=== PATIENT | female | born 1930 | race Caucasian/White ===

== ENCOUNTER 2017-06-06 06:20 | Emergency (ER) | payer OTHER ==
--- NOTE | 2017-06-06 06:41 | EDPHY ---
H & P Time Seen by Provider: 06/06/17 06:40 HPI/ROS: CHIEF COMPLAINT: Rectal bleeding HISTORY OF PRESENT ILLNESS: Patient states she said some fluid in extra fullness in her rectal area for the past 4 days. This morning at 4:00 a.m. She called her neighbor who brought her to the emergency department for evaluation. The patient says she does not have associated abdominal pain nausea or vomiting but has decreased oral intake because she is worried that the more she eats or drinks, the more"fluid comes out"through her rectum. She describes it as uncomfortable and not better worse with anything. She describes a longstanding history of constipation with regular laxative use. REVIEW OF SYSTEMS: Eye: no change in vision, has chronically poor vision ENT: no sore throat Cardiac: no chest pain or syncope Pulmonary: no cough or SOB Abdomen: HPI Musculoskeletal: no back pain Skin: Scattered bruising which is chronic but nothing new on her skin Neuro: no headache Constitutional: no fever : no urinary symptoms A comprehensive 10 point review of systems is otherwise negative aside from elements mentioned in the history of present illness. PAST MEDICAL HISTORY: Includes atrial fibrillation, breast cancer, hypertension Social history: Primary care at [facility]; still lives independently, cooks for herself and drives. General Appearance: Alert and conversant, cooperative. Talkative. Eyes: No scleral icterus. ENT, Mouth: Moderately dry mucous membranes. Respiratory: Normal respiratory effort, breath sounds equal, lungs are clear to auscultation. Cardiovascular: Regular rate and rhythm. Gastrointestinal: Abdomen is soft and non tender. Patient has rectal prolapse which is soft reddish in color. Neurological: Alert, face symmetric, normal motor and sensory in extremities. Skin: Warm and dry, no rashes. Musculoskeletal: No peripheral edema. Psychiatric: Not agitated. Emergency Department course/MDM: IV normal saline 1 L. Rectal prolapse is soft it was easily reduced with manual pressure by myself. 720: lab reviewed with hematocrit 41 and normal electrolytes. 800: Results discussed with the patient. Serial exams. 1019: Patient went to the bathroom, did not have recurrence with using the toilet. Re-examined at this time she has no prolapse. Does not have evidence of ischemic bowel, reasonable to discharge which is what she wants, with clinic follow-up. [facility] discussed at this time: will arrange surgical followup, will get phone call in next 2 days. Patient declined stool softeners, says "they don't work" will try and increase oral fluid intake. Smoking Status: Never smoked Constitutional: Initial Vital Signs Temperature (C) 36.3 C 06/06/17 06:21 Heart Rate 109 H 06/06/17 06:21 Respiratory Rate 20 06/06/17 06:21 Blood Pressure 156/94 H 06/06/17 06:21 O2 Sat (%) 94 06/06/17 06:21 O2 Delivery Mode Room Air Allergies/Adverse Reactions: No Known Allergies Allergy (Unverified 08/14/11 05:35) Home Medications: Medication Instructions Recorded Levothyroxine [Synthroid 50 mcg 50 mcg PO DAILY06 05/22/11 (RX)] Cholecalciferol Vit D3 [Vitamin D 1,000 units PO DAILY 05/23/11 1000 units] Cyanocobalamin [Vitamin B12 100 100 mcg PO DAILY 05/23/11 MCG (OTC)] [place]-3 Fatty Acids [Fish Oil 1000 1,000 mg PO DAILY 05/23/11 mg (OTC)] Aspirin [Aspir 81] 81 mg PO 08/14/11 Metoprolol Tartrate [Lopressor 25 12.5 mg PO BID 08/14/11 mg (RX)] Pharmacy Completed 08/14/11 08/14/11 Reconciled 08/18/11 08/18/11 Sennosides [Ex-Lax] 15 mg PO PRN PRN 08/18/11 Medical Decision Making Differential Diagnosis: Differential considered including but not limited to ischemic bowel, rectal prolapse, hemorrhoids, lower GI bleed, perirectal abscess or infection. - Data Points Laboratory Results: Laboratory Results 06/06/17 06:48 06/06/17 06:48 06/06/17 06/06/17 06/06/17 06:48 06:48 06:48 WBC 9.51 10^3/uL H 10^3/uL (3.80-9.50) RBC 4.45 10^6/uL 10^6/uL (4.18-5.33) Hgb 13.4 g/dL g/dL (12.6-16.3) Hct 41.0 % % (38.0-47.0) MCV 92.1 fL fL (81.5-99.8) MCH 30.1 pg pg (27.9-34.1) MCHC 32.7 g/dL g/dL (32.4-36.7) RDW 17.0 % H % (11.5-15.2) Plt Count 119 10^3/uL L 10^3/uL (150-400) MPV 12.2 fL H fL (8.7-11.7) Neut % (Auto) 83.1 % H % (39.3-74.2) Lymph % (Auto) 9.6 % L % (15.0-45.0) [place] % (Auto) 6.3 % % (4.5-13.0) Eos % (Auto) 0.1 % L % (0.6-7.6) Baso % (Auto) 0.2 % L % (0.3-1.7) Nucleat RBC Rel Count 0.0 % % (0.0-0.2) Absolute Neuts (auto) 7.90 10^3/uL H 10^3/uL (1.70-6.50) Absolute Lymphs (auto) 0.91 10^3/uL L 10^3/uL (1.00-3.00) Absolute Monos (auto) 0.60 10^3/uL 10^3/uL (0.30-0.80) Absolute Eos (auto) 0.01 10^3/uL L 10^3/uL (0.03-0.40) Absolute Basos (auto) 0.02 10^3/uL 10^3/uL (0.02-0.10) Absolute Nucleated RBC 0.00 10^3/uL 10^3/uL (0-0.01) Immature Gran % 0.7 % % (0.0-1.1) Immature Gran # 0.07 10^3/uL 10^3/uL (0.00-0.10) Sodium 145 mEq/L mEq/L (135-145) Potassium 4.4 mEq/L mEq/L (3.5-5.2) Chloride 108 mEq/L mEq/L (97-110) Carbon Dioxide 21 mEq/l L mEq/l (22-31) Anion Gap 16 mEq/L mEq/L (8-16) BUN 21 mg/dL mg/dL (7-23) Creatinine 0.8 mg/dL mg/dL (0.6-1.0) Estimated GFR > 60 Glucose 89 mg/dL mg/dL (70-100) Calcium 9.7 mg/dL mg/dL (8.5-10.4) Patient ABO/Rh A NEGATIVE Antibody Screen NEGATIVE Medications Given: Discontinued Medications Sodium Chloride (Ns) 1,000 mls @ 0 mls/hr IV ONCE ONE; Wide Open PRN Reason: Protocol Stop: 06/06/17 06:51 Last Admin: 06/06/17 06:53 Dose: 1,000 mls Sodium Chloride (Ns) 1,000 mls @ 0 mls/hr IV EDNOW ONE; Wide Open PRN Reason: Protocol Stop: 06/06/17 07:23 Last Admin: 06/06/17 07:42 Dose: 1,000 mls Sodium Chloride (Ns) 1,000 mls @ 0 mls/hr IV EDNOW ONE; Wide Open PRN Reason: Protocol Stop: 06/06/17 09:17 Last Admin: 06/06/17 09:21 Dose: 1,000 mls Departure - Departure Disposition: Home, Routine, Self-Care Clinical Impression: Rectal prolapse Condition: Good Instructions: Rectal Prolapse (ED) Referrals: MERLIN MONTOYA [Primary Care Provider] - As per Instructions
[2017-06-06] MEDS ORDERED: NS 1,000 ML IV ONE ×3 (06:50→09:16)
[2017-06-06 06:53] LABS: PLATELET COUNT 119 10^3/uL (150-400)
[2017-06-06 10:56] VITALS: BP 143/80
== END 2017-06-06 11:19 | disposition home or self-care (01) ==
DX: K62.3 Rectal prolapse (principal); I10 Essential (primary) hypertension; E86.9 Volume depletion, unspecified; Z79.82 Long term (current) use of aspirin; Z85.3 Personal history of malignant neoplasm of breast

== ENCOUNTER 2018-02-09 15:53 | Inpatient (IN) | payer OTHER ==
[2018-02-09] MEDS ORDERED: NS 500 ML IV ONE (16:04)
--- NOTE | 2018-02-09 16:04 | EDPHY ---
H & P Time Seen by Provider: 02/09/18 16:01 HPI/ROS: CHIEF COMPLAINT: Fall, back pain HISTORY OF PRESENT ILLNESS: The patient is an 87-year-old female who presents emergency department after sustaining a mechanical fall and subsequently having back pain. Patient states she had a mechanical fall 2 days ago. She was using her cane when she tripped. She landed forward striking her head. She did not lose consciousness. She denies any significant headache. She now complains of upper back pain. She states"it's my muscles."It is worse with movement. She has had no numbness or tingling. No chest pain or shortness of breath. No abdominal pain. No nausea vomiting. No hip pain. Patient has been able to ambulate since the accident. She called EMS today. They noted that she had significant raccoon eyes and she was hypertensive. REVIEW OF SYSTEMS: 10 systems were reveiwed and are negative with the exception of the elements mentioned in the history of present illness. Past Medical/Surgical History: Includes hypertension, AFib, rectal prolapse, breast cancer Smoking Status: Never smoked Physical Exam: Vitals noted. Hypertensive. GENERAL: Mild acute distress, alert. HEAD: Patient has bilateral ecchymoses surrounding her eyes. This appears 1 to 2-day-old. EYES: PERRLA, EOMI, normal to inspection except for ecchymosis. ENT: Airway intact, no dental or oral injury, no malocclusion, no hemotympanum , normal external examination. NECK: The trachea is midline. There is no crepitus. The C-spine is nontender. RESPIRATORY: Clear to auscultation bilaterally, no rales, rhonchi or wheezing. Chest wall: Normal to appearance. No crepitance or deformity. CVS: Regular rate and rhythm, no rubs, murmurs, or gallops. ABDOMEN: Soft, nontender, nondistended, no bruising or abrasions. Pelvis: Stable. No tenderness palpation. GENITAL/RECTAL: Normal external exam. BACK: Normal to inspection, patient has no specific spinal tenderness but states that her whole back hurts when I touch it. No spinal step off, no notable bruising or abrasions. SKIN: Normal color, warm, dry. No pallor or diaphoresis. EXTREMITIES: Atraumatic, neurovascularly intact distally in all extremities, hips with full range of motion, moves all extremities freely. NEURO/PSYCH: Alert and oriented x 3, GCS 15, normal mood and affect, normal motor sensory exam. Constitutional: Initial Vital Signs Temperature (C) 36.5 C 02/09/18 16:06 Heart Rate 91 02/09/18 16:06 Respiratory Rate 18 02/09/18 16:06 Blood Pressure 178/105 H 02/09/18 16:06 O2 Sat (%) 96 02/09/18 16:06 O2 Delivery Mode Room Air Allergies/Adverse Reactions: No Known Allergies Allergy (Unverified 08/14/11 05:35) Home Medications: Medication Instructions Recorded Levothyroxine [Synthroid 50 mcg 50 mcg PO DAILY06 05/22/11 (RX)] Cholecalciferol Vit D3 [Vitamin D 1,000 units PO DAILY 05/23/11 1000 units] Cyanocobalamin [Vitamin B12 100 100 mcg PO DAILY 05/23/11 MCG (OTC)] [place]-3 Fatty Acids [Fish Oil 1000 1,000 mg PO DAILY 05/23/11 mg (OTC)] Aspirin [Aspir 81] 81 mg PO 08/14/11 Metoprolol Tartrate [Lopressor 25 12.5 mg PO BID 08/14/11 mg (RX)] Pharmacy Completed 08/14/11 08/14/11 Reconciled 08/18/11 08/18/11 Sennosides [Ex-Lax] 15 mg PO PRN PRN 08/18/11 Medical Decision Making - Diagnostics Imaging Results: Imaging Impressions Cervical Spine CT 02/09/18 16:04 Impression: 1. No fracture identified. 2. Prior cerclage wire fixation posterior elements C1-C3. 3. Grade 1 degenerative anterolisthesis of C3 upon C4. 4. Degenerative disk disease at C4-C5, C5-C6, and C6-C7. Results called to Dr. Deedee Rangel at 4:[address] 02/09/18 16:04 Impression: Underlying atrophy and extensive white matter microvascular ischemic gliosis, without acute intracranial abnormality identified. Results called to Dr. Deedee Rangel at 4:45 PM at the time of the interpretation. Lumbar Spine CT 02/09/18 16:05 Impression: 1. Mild compression deformities of all lumbar vertebral bodies without retropulsion of bone. Underlying osteopenia. 2. As clinically appropriate, noncontrast MRI examination may be of benefit in determining the age of the compression fractures. Results called to Dr. Deedee Rangel at 5:[address] 02/09/18 16:05 Impression: Compression fractures of T3, T4, T7, T8, T9, and T10, age indeterminate. Noncontrast MRI examination of the thoracic spine may be of benefit in determining if these fractures are acute or chronic in age, as clinically appropriate. ED Course/Re-evaluation: In the emergency department patient was limited trauma activation. I met EMS on arrival. I took report from the sugar trucker. I discussed the plan with the patient. I answered all her questions. Due the patient's presentation head CT and spinal CTs were ordered. Laboratory studies were ordered. Troponin is negative CT head and C-spine: Please refer the dictated report by Dr. Wiliam Ortega. No intracranial injury. The patient is a previous fusion of her thoracic spine. Dr. Ortega will call back with the remainder of the imaging studies. EKG shows normal sinus rhythm, normal rate, normal axis, normal intervals. Atrial premature complexes. There are no ST or T-wave abnormalities. CBC shows a low platelet count at 82. Previous platelet count was 119 (06/06/2017 ). Patient's chemistry panel is unremarkable. Coags are normal. 1655: CT thoracic spine: Please refer the dictated report by Dr. Ortega. The patient has compression fractures at T3, T4, T7, T8, T9, and T10. These are all mild to moderate. There is no cord impingement. Lumbar spine: Please refer the dictated report. Per the radiologist, the acuity of these injuries cannot be determined. He recommended MRI imaging. On recheck the patient has diffuse back pain. Of note , she has no focal spinal tenderness. No focal deficits. I consulted Dr. Zeng from Trauma surgery. He will evaluate the patient. I discussed the case with the hospitalist service. Dr. Blancas and Dr. Zeng discussed the case. Dr. Blancas will admit. Differential Diagnosis: My differential includes but is not limited to mechanical fall, subarachnoid hemorrhage, subdural hematoma, epidural hematoma, skull fracture, facial fracture, spinal fracture, disc herniation, dysrhythmia - Data Points Laboratory Results: Laboratory Results 02/09/18 16:07 02/09/18 16:07 02/09/18 02/09/18 02/09/18 16:14 16:07 16:07 WBC RBC Hgb Hct MCV MCH MCHC RDW Plt Count MPV Neut % (Auto) Lymph % (Auto) [place] % (Auto) Eos % (Auto) Baso % (Auto) Nucleat RBC Rel Count Absolute Neuts (auto) Absolute Lymphs (auto) Absolute Monos (auto) Absolute Eos (auto) Absolute Basos (auto) Absolute Nucleated RBC Immature Gran % Immature Gran # RBC/WBC/PLT Morphology Platelet Estimate PT 14.6 SEC SEC (12.0-15.0) INR 1.12 (0.83-1.16) APTT 29.8 SEC SEC (23.0-38.0) Sodium 141 mEq/L mEq/L (135-145) Potassium 4.2 mEq/L mEq/L (3.5-5.2) Chloride 105 mEq/L mEq/L (97-110) Carbon Dioxide 25 mEq/l mEq/l (22-31) Anion Gap 11 mEq/L mEq/L (6-14) BUN 12 mg/dL mg/dL (7-23) Creatinine 0.6 mg/dL mg/dL (0.6-1.0) Estimated GFR > 60 Glucose 112 mg/dL H mg/dL (70-100) Calcium 9.2 mg/dL mg/dL (8.5-10.4) POC Troponin I 0.00 ng/mL ng/mL (0.00-0.08) 02/09/18 16:07 WBC 6.57 10^3/uL 10^3/uL (3.80-9.50) RBC 4.28 10^6/uL 10^6/uL (4.18-5.33) Hgb 13.7 g/dL g/dL (12.6-16.3) Hct 41.1 % % (38.0-47.0) MCV 96.0 fL fL (81.5-99.8) MCH 32.0 pg pg (27.9-34.1) MCHC 33.3 g/dL g/dL (32.4-36.7) RDW 15.7 % H % (11.5-15.2) Plt Count 82 10^3/uL L 10^3/uL (150-400) MPV 11.8 fL H fL (8.7-11.7) Neut % (Auto) 86.4 % H % (39.3-74.2) Lymph % (Auto) 7.0 % L % (15.0-45.0) [place] % (Auto) 4.6 % % (4.5-13.0) Eos % (Auto) 0.0 % L % (0.6-7.6) Baso % (Auto) 0.3 % % (0.3-1.7) Nucleat RBC Rel Count 0.0 % % (0.0-0.2) Absolute Neuts (auto) 5.68 10^3/uL 10^3/uL (1.70-6.50) Absolute Lymphs (auto) 0.46 10^3/uL L 10^3/uL (1.00-3.00) Absolute Monos (auto) 0.30 10^3/uL 10^3/uL (0.30-0.80) Absolute Eos (auto) 0.00 10^3/uL L 10^3/uL (0.03-0.40) Absolute Basos (auto) 0.02 10^3/uL 10^3/uL (0.02-0.10) Absolute Nucleated RBC 0.00 10^3/uL 10^3/uL (0-0.01) Immature Gran % 1.7 % H % (0.0-1.1) Immature Gran # 0.11 10^3/uL H 10^3/uL (0.00-0.10) RBC/WBC/PLT Morphology TNP Platelet Estimate TNP PT INR APTT Sodium Potassium Chloride Carbon Dioxide Anion Gap BUN Creatinine Estimated GFR Glucose Calcium POC Troponin I Medications Given: Discontinued Medications Diazepam (Valium) 2.5 mg IVP EDNOW ONE Stop: 02/09/18 16:58 Last Admin: 02/09/18 17:10 Dose: 2.5 mg Sodium Chloride (Ns) 500 mls @ 1,000 mls/hr IV EDNOW ONE PRN Reason: Protocol Stop: 02/09/18 16:33 Last Admin: 02/09/18 16:41 Dose: 500 mls Point of Care Test Results: Chemistry 02/09/18 16:14 POC Troponin I 0.00 ng/mL ng/mL (0.00-0.08) Departure - Departure Disposition: [facility] Inpatient Acute Clinical Impression: Thrombocytopenia Fall Qualifiers: Encounter type: initial encounter Qualified Code(s): W19.XXXA - Unspecified fall, initial encounter Thoracic compression fracture Qualifiers: Encounter type: initial encounter Fracture type: closed Qualified Code(s): S22.000A - Wedge compression fracture of unspecified thoracic vertebra, initial encounter for closed fracture Back pain Qualifiers: Back pain location: back pain in unspecified location Chronicity: acute Back pain laterality: bilateral Qualified Code(s): M54.9 - Dorsalgia, unspecified Condition: Good
[2018-02-09 16:18] LABS: PLATELET COUNT 82 10^3/uL (150-400)
[2018-02-09 16:26] LABS: INR 1.12 (0.83-1.16); PROTIME(PATIENT) 14.6 SEC (12.0-15.0)
[2018-02-09] MEDS ORDERED: DIAZEPAM 5 MG/ML 1 ML SYR IVP ONE (16:57)
[2018-02-09] MEDS ORDERED: ONDANSETRON 4 MG/2 ML VIAL IVP PRN (18:24)
[2018-02-09] MEDS ORDERED: ONDANSETRON DISINTEGRATING 4 MG TAB PO PRN (18:24)
[2018-02-09] MEDS ORDERED: HYDROmorphONE/DILAUDID 1 MG/ML INJ IVP PRN (18:26)
--- NOTE | 2018-02-09 18:44 | ASMTCMCOM ---
CM Note CM Note Notes: Pt presented to the ED via EMS as a LTA+ after having a mechanical fall at home 2 days ago and still experiencing back pain and difficulty/inabilty ambulating. Pt reports that she tripped over her cane while she was walking. Pt admitted for thrombocytopenia and compression fractures at T3, T4, T7, T8, T9, and T10. Pt still lives independently and drives. Per chart review, pt has a neighbor who helps her out and has provided her transportation in the past. Pt's PCP is /[facility]. Exact DC needs TBD. CM to follow. Date Signed: 02/09/2018 06:43 PM Electronically Signed By:Alice Merida RN
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
[2018-02-09] MEDS: traMADol 50 MG TAB PO PRN (20:14)
--- NOTE | 2018-02-09 22:09 | CPEKG ---
Test Reason : OPEN Blood Pressure : / mmHG Vent. Rate : 087 BPM Atrial Rate : 090 BPM P-R Int : 199 ms QRS Dur : 089 ms QT Int : 391 ms P-R-T Axes : 055 -31 082 degrees QTc Int : 471 ms Sinus rhythm Atrial premature complexes Anterior infarct, old Confirmed by Deedee Rangel ([id number]) on 02/09/2018 10:08:42 PM Referred By: Confirmed By:Deedee Rangel
[2018-02-09] MEDS: ACETAMINOPHEN 500 MG TAB PO SCH (22:10)
[2018-02-09] MEDS: METHOCARBAMOL 750 MG TAB PO PRN (22:12)
[2018-02-10 04:53] LABS: PLATELET COUNT 72 10^3/uL (150-400)
[2018-02-10] MEDS: ACETAMINOPHEN 500 MG TAB PO SCH ×3 (05:29→22:38)
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
--- NOTE | 2018-02-10 08:35 | HOSPPROG ---
Hospitalist Progress Note Assessment/Plan: [facility] Patient Name: Lucretia ARIAS Rpt#: [id number] Unit Number: [id number] Attending/ER Physician: Todd Blancas MD Patient Type: ADM Albino Adm Date/Source: 02/09/18 EMR Discharge Date: Primary Carrier: [facility] Rosanne is an 87 y/o woman who lives independently. She slipped on some plastic bags approximately 2 days prior to this admission. The back pain became worse so she came to the ER for further evaluation. First encounter, chart reviewed. Discussed her care w Dr Zeng. *Mechanical Fall -PT and OT *Multiple compression fx (T3, T4, T7, T8, T9, and T10) -neurosurgery to see -MRI of her back today *osteoporosis -check D levels *inferior pubic ramus fx -CT scan ordered by trauma services to further evaluate *facial ecchymosis -CT of head shows no acute fx, underlying atrophy -Cervical CT of the spine shows DDD *thrombocytopenia -chronic *Plan: MRI, CT scan. Appreciate neurosurgery and trauma seeing Rosanne. Subjective: Rosanne has some pain in the thoracic back area. Overall comfortable while in bed. Objective: Vital Signs Temp Pulse Resp BP Pulse Ox 36.6 C 78 16 142/70 H 99 02/10/18 08:00 02/10/18 08:00 02/10/18 08:00 02/10/18 08:00 02/10/18 08:00 Laboratory Results 02/10/18 04:33 02/09/18 02/10/18 02/11/18 05:59 05:59 05:59 Intake Total 850 Output Total 500 Balance 350 PT 14.6 SEC (12.0-15.0) 02/09/18 16:07 INR 1.12 (0.83-1.16) 02/09/18 16:07 - Physical Exam Constitutional: chronically ill appearing, other (thin) Eyes: PERRL Ears, Nose, Mouth, Throat: hearing normal Cardiovascular: regular rate and rhythym Respiratory: no respiratory distress, reduced air movement Skin: warm Musculoskeletal: other (kyphosis) Neurologic: AAOx3 Psychiatric: interacting appropriately ICD10 Worksheet Patient Problems: Problems Problem Status Onset Back pain Acute Fall Acute Thoracic compression fracture Acute Thrombocytopenia Acute Afib - Atrial fibrillation Active Calculus of lower third of ureter Active
[2018-02-10] MEDS: DOCUSATE SODIUM 100 MG CAP PO SCH ×2 (09:34→22:38)
[2018-02-10] MEDS: METHOCARBAMOL 750 MG TAB PO PRN ×2 (09:34→22:40)
[2018-02-10] MEDS: traMADol 50 MG TAB PO PRN (09:34)
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
[2018-02-10] MEDS: oxyCODONE IR 5 MG TAB PO PRN ×2 (14:13→16:26)
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
--- NOTE | 2018-02-10 19:30 | PDMN ---
Medical Necessity Medical necessity: GRG musculoskeletal disease pt fell at home, found tohave mult. compression fxs, thoracic and lumbar, and acute pubic ramus fx., pt having back spasms, pt also with facial ecchymosis, no acute fx of head, thrombocytopenia- chonic for her. PT will need further monitoring and eval of above- anticipate > 2 MN. PT/OT, ,
[2018-02-11] MEDS: oxyCODONE IR 5 MG TAB PO PRN (04:55)
[2018-02-11] MEDS: ACETAMINOPHEN 500 MG TAB PO SCH ×3 (05:40→22:22)
[2018-02-11] MEDS: METHOCARBAMOL 750 MG TAB PO PRN ×2 (08:59→17:14)
[2018-02-11] MEDS: DOCUSATE SODIUM 100 MG CAP PO SCH ×2 (08:59→21:51)
--- NOTE | 2018-02-11 09:27 | HOSPPROG ---
Hospitalist Progress Note Assessment/Plan: [facility] Patient Name: Lucretia ARIAS Rpt#: [id number] Unit Number: [id number] Attending/ER Physician: Todd Blancas MD Patient Type: ADM Albino Adm Date/Source: 02/09/18 EMR Discharge Date: Primary Carrier: [facility] Rosanne is an 87 y/o woman who lives independently. She slipped on some plastic bags approximately 2 days prior to this admission. The back pain became worse so she came to the ER for further evaluation. *Mechanical Fall -PT and OT *Multiple compression fx (T3, T4, T7, T8, T9, and T10) -non acute *osteoporosis, cause of the above -low D level, added calcium and d -would benefit from a bisphosphonate (f/u w PCP)- discussed this w her, but she doesn't want it *inferior pubic ramus fx -CT scan ordered by trauma services to further evaluate *facial ecchymosis -CT of head shows no acute fx, underlying atrophy -Cervical CT of the spine shows DDD -no new neck trauma *thrombocytopenia -chronic *Plan: discussed w her about a SNF, she really wants to go home, but lives alone. May consider. Subjective: Rosanne is feeling stronger today, was able to get oob to the chair, but doesn't want to ambulate w PT. Objective: Vital Signs Temp Pulse Resp BP Pulse Ox 36.9 C 77 14 152/80 H 92 02/11/18 07:20 02/11/18 07:20 02/11/18 07:20 02/11/18 07:20 02/11/18 07:20 Laboratory Results 02/10/18 04:33 02/10/18 02/11/18 02/12/18 05:59 05:59 05:59 Intake Total 850 350 Output Total 500 550 300 Balance 350 -200 -300 PT 14.6 SEC (12.0-15.0) 02/09/18 16:07 INR 1.12 (0.83-1.16) 02/09/18 16:07 - Physical Exam Constitutional: no apparent distress, other (thin) Eyes: PERRL, other (ecchymosis around her eyes) Ears, Nose, Mouth, Throat: hearing normal Respiratory: no respiratory distress Gastrointestinal: normoactive bowel sounds Skin: warm Musculoskeletal: generalized weakness Neurologic: AAOx3 Psychiatric: interacting appropriately ICD10 Worksheet Patient Problems: Problems Problem Status Onset Back pain Acute Fall Acute Thoracic compression fracture Acute Thrombocytopenia Acute Afib - Atrial fibrillation Active Calculus of lower third of ureter Active
--- NOTE | 2018-02-11 09:58 | NEUSURGPN ---
Assessment/Plan: 87y/o female with back pain. -MRI of thoracic and lumbar spine does not demonstrate any acute fractures. Given paint symptoms may be more musclar in nature. -Recommended opmtizing muscle relaxers, PT/OT. -Discussed with Dr. Coreas -Will s/o at this time -Please notify NS with any change in neuro/motor exam Subjective: low back pain, better this morning than yesterday. Denies any leg pain, numbness tingling or weakness Objective: NAD A&Ox3 MEANS x4 5/5 BUE & BLE and equal Sensation intact - Physician Discussed Patient with : [facility] Physical Exam - Vitals, I&O, Labs I and O 02/10/18 02/11/18 02/12/18 05:59 05:59 05:59 Intake Total 850 350 Output Total 500 550 300 Balance 350 -200 -300 Weight 58.967 kg Intake: Oral (ml) 350 350 IV Infused (ml) 500 Output: Urine (ml) 500 550 300 Bedpan 500 250 Toilet 300 300 Other: Number of Voids 1 Bedpan 1 1 Toilet 1 1 Vital Signs Temp Pulse Resp BP Pulse Ox 36.9 C 77 14 152/80 H 92 02/11/18 07:20 02/11/18 07:20 02/11/18 07:20 02/11/18 07:20 02/11/18 07:20 Laboratory Results 02/10/18 04:33 ICD10 Worksheet Patient Problems: Problems Problem Status Onset Back pain Acute Fall Acute Thoracic compression fracture Acute Thrombocytopenia Acute Afib - Atrial fibrillation Active Calculus of lower third of ureter Active
[2018-02-11] MEDS: traMADol 50 MG TAB PO PRN (12:00)
[2018-02-11] MEDS: CALCIUM CARB W/VIT D 500 MG TAB PO SCH ×2 (12:00→21:51)
[2018-02-11] MEDS: CHOLECALCIFEROL VIT D3 1,000 UNITS TAB PO SCH (12:01)
--- NOTE | 2018-02-11 18:48 | TRAUMAPN ---
Trauma Progress Note Assessment/Plan: 87yo F s/p fall c likely old T-spine fx, old pubic rami fx - remains stable, pain is controlled - reviewed pelvic CT with orthopedics. WBAT. Will set her up to see them as outpatient for repeat films but has no pain - only pain is thoracic in nature, NSG has evaluated and signed off - cont PT, OT. Lives at home alone. Likely not appropriate for home at DC. Placement Subjective: feels well, pain is controlled. Has been ambulating with assist Objective: Vital Signs Temp Pulse Resp BP Pulse Ox 36.4 C 94 13 154/86 H 93 02/11/18 16:00 02/11/18 16:00 02/11/18 16:00 02/11/18 16:00 02/11/18 16:00 Laboratory Results 02/10/18 04:33 02/10/18 02/11/18 02/12/18 05:59 05:59 05:59 Intake Total 850 350 600 Output Total 500 550 300 Balance 350 -200 300 PT 14.6 SEC (12.0-15.0) 02/09/18 16:07 INR 1.12 (0.83-1.16) 02/09/18 16:07
--- NOTE | 2018-02-11 21:36 | ASMTCMCOM ---
CM Note CM Note Notes: OT/PT rec SNF, [facility] rec inpatient rehab. Hospitalist Darío to input an inpatient rehab consult order. Referral sent to [facility] in [employer]. Spoke with pt about the rec for d/c to rehab and she is not opposed, pt informed if [place] approves SNF the facility is [facility] [place]. Pt provided MDPOA form, reports family resides 800 miles away. Cm to follow. Date Signed: 02/11/2018 04:08 PM Electronically Signed By:JULIO CESAR Arthur
[2018-02-12] MEDS: traMADol 50 MG TAB PO PRN (03:27)
[2018-02-12] MEDS: METHOCARBAMOL 750 MG TAB PO PRN ×3 (03:29→16:27)
[2018-02-12] MEDS: ACETAMINOPHEN 500 MG TAB PO SCH ×3 (06:01→21:57)
[2018-02-12] MEDS: oxyCODONE IR 5 MG TAB PO PRN ×3 (08:45→16:26)
[2018-02-12] MEDS: CHOLECALCIFEROL VIT D3 1,000 UNITS TAB PO SCH (08:47)
[2018-02-12] MEDS: DOCUSATE SODIUM 100 MG CAP PO SCH ×2 (08:48→21:57)
[2018-02-12] MEDS: CALCIUM CARB W/VIT D 500 MG TAB PO SCH ×2 (08:48→21:57)
--- NOTE | 2018-02-12 09:49 | SOAPPROG ---
SOAP Progress Note Assessment/Plan: Assessment: Plan: Subjective: notes pelvic and thoracic pain 87 year old woman with multiple new and or oled t spine fx and pubic ramus fx- [place]- rrr lungs clear abd soft ambultating with walker and assist. assess: s/p fall- needs short term rehab prior to resuming independant living alonee. ready for discharge anytime from trauma service perspective. home anticoagulation no unreasonble because of pelvic fx, and multiple inuries. Objective: Vital Signs Temp Pulse Resp BP Pulse Ox 36.8 C 86 16 164/95 H 90 L 02/12/18 07:37 02/12/18 07:37 02/12/18 07:37 02/12/18 07:37 02/12/18 07:37 Laboratory Results 02/10/18 04:33 02/11/18 02/12/18 02/13/18 05:59 05:59 05:59 Intake Total 350 1100 Output Total 550 1300 100 Balance -200 -200 -100 PT 14.6 SEC (12.0-15.0) 02/09/18 16:07 INR 1.12 (0.83-1.16) 02/09/18 16:07 ICD10 Worksheet Patient Problems: Problems Problem Status Onset Back pain Acute Fall Acute Thoracic compression fracture Acute Thrombocytopenia Acute Afib - Atrial fibrillation Active Calculus of lower third of ureter Active
--- NOTE | 2018-02-12 11:33 | ASMTCMCOM ---
CM Note CM Note Notes: [place] authorizes SNF: Auth [id number]. [facility] can accept when pt medically stable, pt updated. CM to follow. D/c plan of care: [facility] Date Signed: 02/12/2018 11:32 AM Electronically Signed By:JULIO CESAR Arthur
[2018-02-12 12:59] LABS: PLATELET COUNT 76 10^3/uL (150-400)
[2018-02-12] MEDS: ENOXAPARIN 40 MG/0.4 ML SYR SC SCH (14:28)
--- NOTE | 2018-02-12 14:45 | HOSPPROG ---
Hospitalist Progress Note Assessment/Plan: Rosanne is an 87 y/o woman who lives independently. She slipped on some plastic bags approximately 2 days prior to this admission. The back pain became worse so she came to the ER for further evaluation. First encounter, chart reviewed. *Mechanical Fall -PT and OT *Multiple compression fx (T3, T4, T7, T8, T9, and T10) -non acute *osteoporosis, cause of the above -low D level, added calcium and d -would benefit from a bisphosphonate (f/u w PCP)- discussed this w her, but she doesn't want it *inferior pubic ramus fx -CT scan shows fx -D/W Dr Collier, rec anticoagulant *Thrombocytopenia -follow, chronic -recheck in am *facial ecchymosis -CT of head shows no acute fx, underlying atrophy -Cervical CT of the spine shows DDD -no new neck trauma *Plan: -Plan for DC in am to [facility] Subjective: Up in chair. Pain controlled. No specific issues. Pain when moving. Objective: Vital Signs Temp Pulse Resp BP Pulse Ox 36.8 C 86 16 164/95 H 90 L 02/12/18 07:37 02/12/18 07:37 02/12/18 07:37 02/12/18 07:37 02/12/18 07:37 Laboratory Results 02/12/18 12:37 02/12/18 12:37 02/11/18 02/12/18 02/13/18 05:59 05:59 05:59 Intake Total 350 1100 Output Total 550 1300 100 Balance -200 -200 -100 PT 14.6 SEC (12.0-15.0) 02/09/18 16:07 INR 1.12 (0.83-1.16) 02/09/18 16:07 - Physical Exam Constitutional: appears nourished, not in pain, chronically ill appearing Eyes: PERRL, anicteric sclera, EOMI Ears, Nose, Mouth, Throat: moist mucous membranes, hearing normal, ears appear normal Cardiovascular: No JVD, No tachycardia, No edema Respiratory: no respiratory distress, no rales or rhonchi, reduced air movement Gastrointestinal: normoactive bowel sounds, No tenderness, No ascites Skin: warm, abrasion, No erythema Musculoskeletal: joint tenderness, pain with ROM, muscular tenderness, abnormal gait, generalized weakness Neurologic: AAOx3 Psychiatric: not anxious, not encephalopathic, thought process linear ICD10 Worksheet Patient Problems: Problems Problem Status Onset Afib - Atrial fibrillation Active Calculus of lower third of ureter Active Fall Acute Thoracic compression fracture Acute Back pain Acute Thrombocytopenia Acute
[2018-02-12] MEDS: hydrALAZINE 20 MG/ML VIAL IVP PRN (16:29)
[2018-02-12] MEDS ORDERED: LACTULOSE 20 GM/30 ML UDCUP PO PRN (23:43)
[2018-02-12] MEDS ORDERED: BISACODYL 10 MG SUPP PR PRN (23:43)
[2018-02-12] MEDS ORDERED: MAGNESIUM HYDROXIDE 30 ML UDCUP PO PRN (23:43)
[2018-02-12] MEDS ORDERED: POLYETHYLENE GLYCOL 3350 17 GM PKT PO PRN (23:43)
[2018-02-13] MEDS: ACETAMINOPHEN 500 MG TAB PO SCH ×3 (06:02→21:25)
[2018-02-13] MEDS: oxyCODONE IR 5 MG TAB PO PRN (06:07)
[2018-02-13] MEDS: CALCIUM CARB W/VIT D 500 MG TAB PO SCH ×2 (09:57→21:24)
[2018-02-13] MEDS: DOCUSATE SODIUM 100 MG CAP PO SCH ×2 (09:57→21:24)
[2018-02-13] MEDS: CHOLECALCIFEROL VIT D3 1,000 UNITS TAB PO SCH (09:57)
--- NOTE | 2018-02-13 10:01 | SOAPPROG ---
SOAP Progress Note Assessment/Plan: Assessment/plan: 87yo F s/p fall with old or new T-spine fx, old pubic rami fx Urinary retention: bladder scan. Consider antispasmodic if continues Ok to d/c to [facility] today or tomorrow from trauma perspective. S: Biggest complaint is pain in a "band" around thoracic back and pelvis. Also c/o interruption in urinary stream. Reports this is a new problem since her fall. O: Alert Afebrile HENT: normocephalic, atraumatic, mmm, no gross hearing deficits, ecchymosis around right orbit. RRR CTA bilaterally, No increased WOB Abdomen: soft, nontender T-spine: ttp 02/13/18 09:54 Objective: Vital Signs Temp Pulse Resp BP Pulse Ox 36.8 C 94 18 173/94 H 92 02/13/18 08:00 02/13/18 08:00 02/13/18 08:00 02/13/18 08:00 02/13/18 08:00 Laboratory Results 02/12/18 12:37 02/12/18 12:37 02/12/18 02/13/18 02/14/18 05:59 05:59 05:59 Intake Total 1100 550 Output Total 1300 600 Balance -200 -50 PT 14.6 SEC (12.0-15.0) 02/09/18 16:07 INR 1.12 (0.83-1.16) 02/09/18 16:07 ICD10 Worksheet Patient Problems: Problems Problem Status Onset Back pain Acute Fall Acute Thoracic compression fracture Acute Thrombocytopenia Acute Afib - Atrial fibrillation Active Calculus of lower third of ureter Active
[2018-02-13] MEDS: ENOXAPARIN 40 MG/0.4 ML SYR SC SCH (10:03)
--- NOTE | 2018-02-13 13:58 | HOSPPROG ---
Hospitalist Progress Note Assessment/Plan: Rosanne is an 87 y/o woman who lives independently. She slipped on some plastic bags approximately 2 days prior to this admission. The back pain became worse so she came to the ER for further evaluation. *Mechanical Fall -PT and OT *Multiple compression fx (T3, T4, T7, T8, T9, and T10) -non acute *osteoporosis, cause of the above -low D level, added calcium and d -would benefit from a bisphosphonate (f/u w PCP)- discussed this w her, but she doesn't want it *inferior pubic ramus fx -CT scan shows fx -anticoagulant *Thrombocytopenia -follow, chronic -recheck in am *Urinary issues -order UA -consider antispasmodic *facial ecchymosis -CT of head shows no acute fx, underlying atrophy -Cervical CT of the spine shows DDD -no new neck trauma *Plan: -Plan for DC in am to [facility] Subjective: C/O urinary stream not strong. Pain, controlled with meds. Objective: Vital Signs Temp Pulse Resp BP Pulse Ox 36.8 C 94 18 147/89 H 92 02/13/18 08:00 02/13/18 08:00 02/13/18 08:00 02/13/18 09:54 02/13/18 08:00 Laboratory Results 02/12/18 12:37 02/12/18 12:37 02/12/18 02/13/18 02/14/18 05:59 05:59 05:59 Intake Total 1100 550 300 Output Total 1300 600 Balance -200 -50 300 PT 14.6 SEC (12.0-15.0) 02/09/18 16:07 INR 1.12 (0.83-1.16) 02/09/18 16:07 - Physical Exam Constitutional: chronically ill appearing, uncomfortable Eyes: PERRL, anicteric sclera Ears, Nose, Mouth, Throat: moist mucous membranes, hearing normal Cardiovascular: No JVD, No edema Respiratory: no respiratory distress, reduced air movement Gastrointestinal: No tenderness, No ascites Skin: warm, abrasion, No erythema Musculoskeletal: pain with ROM, muscular tenderness, abnormal gait, generalized weakness Psychiatric: anxious, poor insight, poor judgement, poor memory ICD10 Worksheet Patient Problems: Problems Problem Status Onset Afib - Atrial fibrillation Active Calculus of lower third of ureter Active Fall Acute Thoracic compression fracture Acute Back pain Acute Thrombocytopenia Acute
[2018-02-13] MEDS: METHOCARBAMOL 750 MG TAB PO PRN (19:36)
--- NOTE | 2018-02-13 21:24 | POSTOPPROG ---
Post Op Note Date of Operation: 02/13/18 Surgeon: Semaj Martinez Anesthesia: Other (Specify) Pre-op Diagnosis: INCARCERATED RECTAL PROLAPSE Post-op Diagnosis: SAME Indication: PAIN AND BLEEDING Procedure: MANUAL REDUCTION OF INTUSSUSCEPTED RECTUM Findings: 6 INCH SECTION OF PROLAPSED RECTUM Inf/Abcess present in the surg proc area at time of surgery?: No Depth: Organ Space EBL: Minimal Complications: NONE Specimen(s): NONE
[2018-02-13] MEDS: SENNOSIDES 25 MG PO PRN (21:26)
[2018-02-13] MEDS: hydrALAZINE 20 MG/ML VIAL IVP PRN (21:34)
[2018-02-14] MEDS: ACETAMINOPHEN 500 MG TAB PO SCH ×3 (08:01→22:02)
[2018-02-14] MEDS: DOCUSATE SODIUM 100 MG CAP PO SCH ×2 (08:01→22:04)
[2018-02-14] MEDS: CHOLECALCIFEROL VIT D3 1,000 UNITS TAB PO SCH (08:01)
[2018-02-14] MEDS: METHOCARBAMOL 750 MG TAB PO PRN (08:01)
[2018-02-14] MEDS: CALCIUM CARB W/VIT D 500 MG TAB PO SCH ×2 (08:01→22:03)
[2018-02-14] MEDS: oxyCODONE IR 5 MG TAB PO PRN ×2 (08:02→14:06)
--- NOTE | 2018-02-14 08:23 | SOAPPROG ---
SOAP Progress Note Assessment/Plan: Assessment: Plan: Subjective: vss, af had rectal prolapse episode last pm, reduced by dr burgos. abd soft, no ne2w comdpaiints. assess- recovering from spone and pelvic fx, awaiting discharge to [facility]. Objective: Vital Signs Temp Pulse Resp BP Pulse Ox 36.5 C 91 14 161/96 H 94 02/14/18 07:32 02/14/18 07:32 02/14/18 07:32 02/14/18 07:32 02/14/18 07:32 Laboratory Results 02/12/18 12:37 02/12/18 12:37 02/13/18 02/14/18 02/15/18 05:59 05:59 05:59 Intake Total 550 1350 Output Total 600 260 Balance -50 1090 PT 14.6 SEC (12.0-15.0) 02/09/18 16:07 INR 1.12 (0.83-1.16) 02/09/18 16:07 ICD10 Worksheet Patient Problems: Problems Problem Status Onset Back pain Acute Fall Acute Thoracic compression fracture Acute Thrombocytopenia Acute Afib - Atrial fibrillation Active Calculus of lower third of ureter Active
--- NOTE | 2018-02-14 09:32 | HOSPPROG ---
Hospitalist Progress Note Assessment/Plan: Rosanne is an 87 y/o woman who lives independently. She slipped on some plastic bags approximately 2 days prior to this admission. The back pain became worse so she came to the ER for further evaluation. *Mechanical Fall -PT and OT *Pain -try ultram -limit narcotics *Multiple compression fx (T3, T4, T7, T8, T9, and T10) -non acute *osteoporosis, cause of the above -low D level, added calcium and d -would benefit from a bisphosphonate (f/u w PCP)- discussed this w her, but she doesn't want it *inferior pubic ramus fx -CT scan shows fx -anticoagulant *Thrombocytopenia -follow, chronic -recheck in am *Urinary issues - UA with bacteria -culture ordered -symptomatic will start CTX -follow culture *facial ecchymosis -CT of head shows no acute fx, underlying atrophy -Cervical CT of the spine shows DDD -no new neck trauma *Rectal prolapse -acute problem -reduced per Dr Martinez -some bleeding -follow labs *Constipation -cont bowel therapy *Plan: -Plan for DC in am to [facility] Subjective: Feels terrible today. Very tired. Didn't sleep well. Objective: Vital Signs Temp Pulse Resp BP Pulse Ox 36.5 C 91 14 161/96 H 94 02/14/18 07:32 02/14/18 07:32 02/14/18 07:32 02/14/18 07:32 02/14/18 07:32 Laboratory Results 02/14/18 08:20 02/14/18 08:20 02/13/18 02/14/18 02/15/18 05:59 05:59 05:59 Intake Total 550 1350 Output Total 600 260 Balance -50 1090 PT 14.6 SEC (12.0-15.0) 02/09/18 16:07 INR 1.12 (0.83-1.16) 02/09/18 16:07 - Physical Exam Constitutional: chronically ill appearing, uncomfortable, cachectic Eyes: PERRL, anicteric sclera, EOMI Ears, Nose, Mouth, Throat: moist mucous membranes, hearing normal, ears appear normal Cardiovascular: regular rate and rhythym, No JVD, No edema Respiratory: no respiratory distress, no rales or rhonchi, reduced air movement Gastrointestinal: normoactive bowel sounds, No tenderness, No ascites Skin: warm, other, No erythema (echymossis) Musculoskeletal: pain with ROM, muscular tenderness, abnormal gait, generalized weakness Neurologic: AAOx3 Psychiatric: not anxious, not encephalopathic, poor insight, poor memory ICD10 Worksheet Patient Problems: Problems Problem Status Onset Afib - Atrial fibrillation Active Calculus of lower third of ureter Active Fall Acute Thoracic compression fracture Acute Back pain Acute Thrombocytopenia Acute
[2018-02-14] MEDS: ENOXAPARIN 40 MG/0.4 ML SYR SC SCH (10:10)
--- NOTE | 2018-02-14 14:02 | ASMTCMCOM ---
CM Note CM Note Notes: Pt not medically stable for d/c to [facility], updates sent to [facility] in [employer] and voicemail left for Jennifer at [facility] [phone]. CM to follow. D/c plan of care: [facility] [place] when medically stable. Date Signed: 02/14/2018 02:01 PM Electronically Signed By:JULIO CESAR Arthur
[2018-02-14] MEDS: hydrALAZINE 20 MG/ML VIAL IVP PRN (15:42)
--- NOTE | 2018-02-14 16:12 | ASMTCMCOM ---
CM Note CM Note Notes: This afternoon [facility] denies pt for SNF, reports she no longer qualifies. Hospitalist Laisha attempted peer to peer by calling Dr. Marina Fowler [phone], no answer. Will wait for call back and Hospitalist tomorrow to try Dr. Fowler who is on tomorrow but no doctor on for [facility] Saturday. Cm to follow. Date Signed: 02/14/2018 04:11 PM Electronically Signed By:JULIO CESAR Arthur
--- NOTE | 2018-02-14 17:47 | SOAPPROG ---
ENIO Progress Note Assessment/Plan: Assessment: FOLLOW-UP AFTER REDUCTION OF INCARCERATED RECTAL PROLAPSE PATIENT HAS NO PAIN, RECURRENT PROLAPSE OR BLEEDING AND IS QUITE COMFORTABLE ABDOMEN SOFT NONTENDER WITH POSITIVE BOWEL SOUNDS Plan: WILL FOLLOW UP AN OUTPATIENT 02/14/18 17:46 Objective: Vital Signs Temp Pulse Resp BP Pulse Ox 36.7 C 108 H 19 169/98 H 96 02/14/18 15:24 02/14/18 15:24 02/14/18 15:24 02/14/18 15:42 02/14/18 15:24 Laboratory Results 02/14/18 08:20 02/14/18 08:20 02/13/18 02/14/18 02/15/18 05:59 05:59 05:59 Intake Total 550 1350 250 Output Total 600 260 Balance -50 1090 250 PT 14.6 SEC (12.0-15.0) 02/09/18 16:07 INR 1.12 (0.83-1.16) 02/09/18 16:07 ICD10 Worksheet Patient Problems: Problems Problem Status Onset Back pain Acute Fall Acute Thoracic compression fracture Acute Thrombocytopenia Acute Afib - Atrial fibrillation Active Calculus of lower third of ureter Active
[2018-02-14] MEDS ORDERED: hydrALAZINE 20 MG/ML VIAL IVP ONE (19:03)
[2018-02-14] MEDS: SENNOSIDES 25 MG PO PRN (22:03)
[2018-02-15] MEDS: traMADol 50 MG TAB PO PRN ×2 (03:21→21:27)
--- NOTE | 2018-02-15 04:46 | GOP ---
DATE OF OPERATION: 02/13/2018 SURGEON: Semaj Martinez MD PREOPERATIVE DIAGNOSIS: Severe incarcerated rectal prolapse. POSTOPERATIVE DIAGNOSIS: Severe incarcerated rectal prolapse. PROCEDURE PERFORMED: Manual reduction of incarcerated rectal prolapse. FINDINGS: The patient was found to have an 8-inch segment of intussuscepted rectum and colon stickin g out with some irritation and minor bleeding. DESCRIPTION OF PROCEDURE: The patient was in her own room, placed in the left lateral decubitus posi tion. The prolapsed rectum was well lubricated and then slowly reduced back into the abdomen circumf erentially. This was relatively easy, and her sphincter tone was surprisingly good after reduction o f this tissue. She tolerated the procedure quite well. There were no complications. Copy requested to: Jaison Ulrich #: [id number]
[2018-02-15] MEDS: ACETAMINOPHEN 500 MG TAB PO SCH ×3 (07:15→21:25)
[2018-02-15] MEDS: ENOXAPARIN 40 MG/0.4 ML SYR SC SCH (08:47)
[2018-02-15] MEDS: CALCIUM CARB W/VIT D 500 MG TAB PO SCH ×3 (08:47→21:24)
[2018-02-15] MEDS: CHOLECALCIFEROL VIT D3 1,000 UNITS TAB PO SCH ×2 (08:47→08:56)
[2018-02-15] MEDS: DOCUSATE SODIUM 100 MG CAP PO SCH ×3 (08:47→21:26)
--- NOTE | 2018-02-15 13:01 | HOSPPROG ---
Hospitalist Progress Note Assessment/Plan: Rosanne is an 87 y/o woman who lives independently and presenting s/p fall with multiple injuries of indeterminant age and facial ecchymosis as well as confusion #Mechanical Fall -PT and OT involved, she continues to require assistance with ambulation and recommendation is for SNF # inferior/superior pubic rami fxs: the superior deformity appears acute, inferior likely old. Contributing to her pain and difficulty with ambulation as above. # thoracic compression fractures: not acute, likely contributing to pain #Pain-relatively controlled, limiting narcotics # metabolic encephalopathy: patient noted to be tangential, perseverative and states she is having issues with maintaining her thought process which she denies being her baseline, query related to concussion or underlying dementia # rectal prolapse: s/p reduction by Dr. Martinez # osteoporosis: underlying above, continue vitamin D/calcium # thrombocytopenia: chronic # bacturia: low colony counts of several different bacteria, will dc abx # facial ecchymosis # constipation: bowel protocol # IP status # dispo: pending--snf versus home with home health through [facility] Patient new to my care. Old records reviewed summarized as above. Care plan reviewed with CM. Doc to doc done with Dr. Anastasia Fowler of [facility] regarding placement. Subjective: patient notes she is doing a bit better, pain is better controlled, ambulating with walker and with PT Objective: Vital Signs Temp Pulse Resp BP Pulse Ox 36.7 C 90 18 164/93 H 94 02/15/18 07:35 02/15/18 07:35 02/15/18 07:35 02/15/18 07:35 02/15/18 07:35 Laboratory Results 02/14/18 08:20 02/14/18 08:20 02/14/18 02/15/18 02/16/18 05:59 05:59 05:59 Intake Total 1350 650 Output Total 260 450 250 Balance 1090 200 -250 PT 14.6 SEC (12.0-15.0) 02/09/18 16:07 INR 1.12 (0.83-1.16) 02/09/18 16:07 awake alert anicteric facial ecchymoses op clear rrr no mrg cta b soft nt nd no cce warm dry tangential perseverative non focal neuro ICD10 Worksheet Patient Problems: Problems Problem Status Onset Afib - Atrial fibrillation Active Calculus of lower third of ureter Active Fall Acute Thoracic compression fracture Acute Back pain Acute Thrombocytopenia Acute
[2018-02-15] MEDS: hydrALAZINE 20 MG/ML VIAL IVP PRN (15:45)
[2018-02-15] MEDS: METHOCARBAMOL 750 MG TAB PO PRN (15:46)
--- NOTE | 2018-02-15 17:57 | ASMTCMCOM ---
CM Note CM Note Notes: Received authorization for SNF from [facility] today late afternoon. Pt accepted by [facility] in [place]. Pt likely to discharge tomorrow. CM to follow. D/c Plan: [facility] Date Signed: 02/15/2018 05:56 PM Electronically Signed By:Shana Bowman
[2018-02-16] MEDS: ACETAMINOPHEN 500 MG TAB PO SCH ×2 (05:08→16:04)
[2018-02-16 07:27] VITALS: BP 151/86
[2018-02-16] MEDS: ENOXAPARIN 40 MG/0.4 ML SYR SC SCH (08:42)
--- NOTE | 2018-02-16 09:04 | PDDCSUM ---
Discharge Summary Discharge Summary: Dates of service 02/09-02/15/18 Consultations: trauma surgery, neurosurgery Procedures: head CT, C/T/L spine CT, pelvic CT Hospital course by problem: Rosanne is an 87 y/o woman who lives independently and presenting s/p fall with multiple injuries of indeterminant age and facial ecchymosis as well as confusion #Mechanical Fall -PT and OT involved, she continues to require assistance with ambulation and recommendation is for SNF # inferior/superior pubic rami fxs: the superior deformity appears acute, inferior likely old. Contributing to her pain and difficulty with ambulation as above. # thoracic compression fractures: not acute, likely contributing to pain #Pain-controlled on tramadol # metabolic encephalopathy: patient noted to be tangential, perseverative and states she is having issues with maintaining her thought process which she denies being her baseline, query related to concussion or simply delirium in setting of pain and prolonged hospitalization with underlying dementia, improved # rectal prolapse: s/p reduction by Dr. Martinez # osteoporosis: underlying above, continue vitamin D/calcium # thrombocytopenia: chronic # bacturia: low colony counts of several different bacteria, will dc abx # facial ecchymosis # constipation: bowel protocol # IP status Discharge to SNF F/u with orthopedics and PCP after discharge from SNF Items for follow up: monitoring of sxs, continued management of osteoporosis > 35 min spent in discharge, more than half in coordination of care
--- NOTE | 2018-02-16 09:04 | PDIAF ---
- Diagnosis Code Status: Full Code - Medication Management Discharge Medications: electronically signed and located in the Home Medication List. - Orders Services needed: Registered Nurse, Certified Manager Channel, Physical Therapy, Occupational Therapy - Follow Up Care Current Providers and Referrals: Javier Villanueva MD [Medical Doctor] - (3 weeks for follow up of old pubic rami fx. Please call to make appt) Patient,NotPresent [Primary Care Provider] - As per Instructions
[2018-02-16] MEDS: CALCIUM CARB W/VIT D 500 MG TAB PO SCH (09:14)
[2018-02-16] MEDS: DOCUSATE SODIUM 100 MG CAP PO SCH (09:14)
[2018-02-16] MEDS: CHOLECALCIFEROL VIT D3 1,000 UNITS TAB PO SCH (09:14)
[2018-02-16] MEDS: traMADol 50 MG TAB PO PRN (11:49)
--- NOTE | 2018-02-16 12:14 | PDIAF ---
- Diagnosis Code Status: Full Code - Medication Management Discharge Medications: electronically signed and located in the Home Medication List. - Orders Services needed: Registered Nurse, Certified Development Executive, Physical Therapy, Occupational Therapy Additional Instructions: For your Rectal Prolapse - if it prolapses during BMs, you should feel free to push it back in, gentle steady pressure will usually do the trick PREVENTING RECTAL PROLAPSE - stay hydrated! - increase your fiber intake, I recommend a supplement such as Metamucil daily - Avoid constipation, you may need to take a daily stool softener or non- stimulating laxative - Follow Up Care Current Providers and Referrals: Javier Villanueva MD [Medical Doctor] - (3 weeks for follow up of old pubic rami fx. Please call to make appt) Patient,NotPresent [Primary Care Provider] - As per Instructions Jhon Kelley MD [Medical Doctor] - (call to follow up for rectal prolapse if continues to be an issue )
--- NOTE | 2018-02-16 12:44 | GPN ---
DATE OF PROCEDURE: 02/16/2018 RN INTEGRATED: None. PREOPERATIVE DIAGNOSIS: Incarcerated full thickness rectal prolapse. POSTOPERATIVE DIAGNOSIS: Incarcerated full thickness rectal prolapse. PROCEDURE PERFORMED: Bedside manual reduction of rectal prolapse. ESTIMATED BLOOD LOSS: None. DESCRIPTION OF PROCEDURE: The patient was verbally consented for the procedure. There was approximately 5 cm of bright red circumferential rectal prolapse full-thickness identified which was painful to the patient. The area was inspected. I found no signs of necrosis. The rectal wall was then gently lubricated and using gentle steady pressure, the rectum was successfully reduced back in to the patient's abdomen. She tolerated this well. There were no complications. /[id number]/MODL MTDD
--- NOTE | 2018-02-17 14:20 | ASDISCHSUM ---
Discharge Information Plan Status:SNF Medically Cleared to Leave:02/15/2018 Discharge Date:02/15/2018 CM D/C Disposition:Assisted Facility ADT D/C Disposition:Assisted Facility Projected Discharge Date:02/16/2018 05:00 PM Transportation at D/C:Wheelchair Van Discharge Delay Reason: Follow-Up Date:02/16/2018 05:00 PM Discharge Slot:2 - 12:01 pm - 18:00 pm Final Diagnosis:Fall: pubic fx's, Thoracic compression fx's, Concussion, Encphalopathy Placement Information Referral Type:*Skilled Nursing/SNF Referral ID:[id number] Provider Name:[facility] Address 1:[address] Phone Number: Address 2: Fax Number: [facility]:[place] Selection Factors: State:[place] Referral Type:*Skilled Nursing/SNF Referral ID:[id number] Provider Name:[facility] Address [address] Phone Number: Address 2: Fax Number: [facility]:[place] Selection Factors: State:[place] Patient Contact Information Contact Name:HAILE Relationship:Friend Address: City: [facility] Phone: State/Zip Code: Email: Financial Information Financial Class:Medicare Advantage Plans Primary Plan Desc:[employer] ADV IP Primary Plan Number:[id number] Secondary Plan Desc: Secondary Plan Number: Assessment Information LACE LACE Length of stay for Answers: 7-13 days current admission Acuity / Level of Answers: Yes Care: Did the patient have an inpatient admission? Comorbidities - select Answers: Any tumor (including all that apply lymphoma or leukemia) History of falls Other Notes: Hx of breast cancer, HTN, AFib, rect al prolapse # of Emergency department Answers: 1-2 visits in the last 6 months Score: 15 Date Signed: 02/16/2018 02:22 PM Electronically Signed By:Marilyn Trujillo LCSW [facility] CM Progress Note CM Note CM Note Notes: Pt presented to the ED via EMS as a LTA+ after having a mechanical fall at home 2 days ago and still experiencing back pain and difficulty/inabilty ambulating. Pt reports that she tripped over her cane while she was walking. Pt admitted for thrombocytopenia and compression fractures at T3, T4, T7, T8, T9, and T10. Pt still lives independently and drives. Per chart review, pt has a neighbor who helps her out and has provided her transportation in the past. Pt's PCP is /[facility]. Exact DC needs TBD. CM to follow. Date Signed: 02/09/2018 06:43 PM Electronically Signed By:Alice Merida RN [facility] CM Progress Note CM Note CM Note Notes: OT/PT rec SNF, [employer] rec inpatient rehab. Hospitalist Darío to input an inpatient rehab consult order. Referral sent to [facility] in [employer]. Spoke with pt about the rec for d/c to rehab and she is not opposed, pt informed if [facility] approves SNF the facility is [facility]. Pt provided MDPOA form, reports family resides 800 miles away. Cm to follow. Date Signed: 02/11/2018 04:08 PM Electronically Signed By:JULIO CESAR Arthur [facility] CM Progress Note CM Note CM Note Notes: [facility] authorizes SNF: Auth [id number]. [facility] can accept when pt medically stable, pt updated. CM to follow. D/c plan of care: [facility] Date Signed: 02/12/2018 11:32 AM Electronically Signed By:JULIO CESAR Arthur [facility] CM Progress Note CM Note CM Note Notes: Pt not medically stable for d/c to [facility], updates sent to [facility] in [employer] and voicemail left for Jennifer at [facility] [phone]. CM to follow. D/c plan of care: [facility] [place] when medically stable. Date Signed: 02/14/2018 02:01 PM Electronically Signed By:JULIO CESAR Arthur [facility] CM Progress Note CM Note CM Note Notes: This afternoon [facility] denies pt for SNF, reports she no longer qualifies. Hospitalist Laisha attempted peer to peer by calling Dr. Marina Fowler [phone], no answer. Will wait for call back and Hospitalist tomorrow to try Dr. Fowler who is on tomorrow but no doctor on for [facility] Saturday. Cm to follow. Date Signed: 02/14/2018 04:11 PM Electronically Signed By:JULIO CESAR Arthur [facility] CM Progress Note CM Note CM Note Notes: Received authorization for SNF from [facility] today late afternoon. Pt accepted by [facility] in [place]. Pt likely to discharge tomorrow. CM to follow. D/c Plan: [facility] Date Signed: 02/15/2018 05:56 PM Electronically Signed By:Shana Bowman Case Management Discharge Plan Note Case Management Discharge Discharge Order Complete? Answers: Yes Patient to Obtain Answers: Other Notes: [facility] Medications Transportation Arranged Answers: Other Notes: [facility] will Pick (Date 02/16/2018 04:30 PM & Time) Case Management Transport Answers: No Form Complete Faxed Final Orders Answers: Yes Notes: [facility] Family Notified Answers: Yes Discharge Comments Notes: Patient has been [facility] to [facility] to set up transport for 4:30. Date Signed: 02/16/2018 02:31 PM Electronically Signed By:Marilyn Trujillo LCSW Intervention Information Intervention Type:*IM-Signed Date of Service:02/14/2018 02:59 PM Patient Type:Inpatient Staff Member:Briseyda King Hours: Discipline: Severity: Comment:
--- NOTE | 2018-02-17 14:22 | ASMTDCNOTE ---
Case Management Discharge Discharge Order Complete? Answers: Yes Patient to Obtain Answers: Other [facility] Arranged Answers: Other Notes: [facility] Transport will Pick (Date 02/16/2018 04:30 PM & Time) Case Management Transport Answers: No Form Complete Faxed Final Orders Answers: Yes Notes: [facility] Family Notified Answers: Yes Discharge Comments Notes: Patient has been discharged to [facility] to set up transport for 4:30. Date Signed: 02/16/2018 02:31 PM Electronically Signed By:Marilyn Trujillo LCSW
== END 2018-02-16 17:08 | DRG 981 ==
LOC: EDUNIT# → OBSVTOIN 17:48 → F3N 18:43
PROVIDERS: ADMIT Student in an Organized Health Care Education/Training Program; ATTEND Student in an Organized Health Care Education/Training Program
PROC: 0DS Gastrointestinal System, Reposition (ICD-10-PCS; 2018-02-13)
PROC: 0DS Gastrointestinal System, Reposition (ICD-10-PCS; principal; 2018-02-16)
DX: S32.511A Fracture of superior rim of right pubis, initial encounter for closed fracture (principal); G93.41 Metabolic encephalopathy; M48.54XA Collapsed vertebra, not elsewhere classified, thoracic region, initial encounter for fracture; K62.3 Rectal prolapse; S00.83XA Contusion of other part of head, initial encounter; W01.0XXA Fall on same level from slipping, tripping and stumbling without subsequent striking against object, initial encounter; Y92.010 Kitchen of single-family (private) house as the place of occurrence of the external cause; E86.9 Volume depletion, unspecified; M81.0 Age-related osteoporosis without current pathological fracture; D69.6 Thrombocytopenia, unspecified; K59.00 Constipation, unspecified; R82.71 Bacteriuria; I10 Essential (primary) hypertension; Z85.3 Personal history of malignant neoplasm of breast
CPT/HCPCS: 84484-PO; 92507-GN; 92523-GN; 96374; 97116-GP; 97162-GP; 97166-GO; 97530-GO; 97530-GP; 97535-GO; G0390; G0515-GO; J0360; J0696; J1650; J3360